=== PATIENT | female | born 1940 | race Caucasian/White ===

== ENCOUNTER → 2017-07-11 | Outpatient (CLI) | payer OTHER, MEDICARE | LOC: BRMIMAGING 11:34 | PROVIDERS: ATTEND Family Medicine | DX: Z13.820 Encounter for screening for osteoporosis (principal); Z78.0 Asymptomatic menopausal state ==

== ENCOUNTER → 2018-02-12 | Outpatient (CLI) | payer OTHER, MEDICARE | LOC: CIMAGING 12:36 | PROVIDERS: ATTEND Family Medicine | DX: R06.02 Shortness of breath (principal); R09.02 Hypoxemia; K44.9 Diaphragmatic hernia without obstruction or gangrene; Z85.048 Personal history of other malignant neoplasm of rectum, rectosigmoid junction, and anus | CPT/HCPCS: 36415-PO; 71046-PO; 80053-PO; 85025-PO ==

== ENCOUNTER → 2018-03-25 | Outpatient (CLI) | payer OTHER, MEDICARE | LOC: BHFA 09:30 | PROVIDERS: ATTEND Internal Medicine Interventional Cardiology | DX: R06.02 Shortness of breath (principal) | CPT/HCPCS: 78452; 93017; A9500; J2785 ==

== ENCOUNTER → 2018-04-07 | Outpatient (CLI) | payer OTHER, MEDICARE | LOC: BHCLAF 09:15 | PROVIDERS: ATTEND Internal Medicine Cardiovascular Disease | DX: R06.02 Shortness of breath (principal) | CPT/HCPCS: 93306-PO ==

== ENCOUNTER 2019-02-10 05:39 | Day surgery (SDC) | payer OTHER, MEDICARE ==
[2019-02-10] MEDS ORDERED: LR 1,000 ML IV ONE (06:06)
[2019-02-10] MEDS ORDERED: LIDOCAINE 1% 2 ML INJ ONE (06:30)
[2019-02-10] MEDS ORDERED: BUPIVACAINE/EPI 0.5% 30 ML SDV ONE (06:50)
--- NOTE | 2019-02-10 07:01 | PDANEPAE ---
ANE Past Medical History - Cardiovascular History Hx Hypertension: Yes Hx Arrhythmias: No Hx Chest Pain: No Hx Coronary Artery / Peripheral Vascular Disease: No Hx CHF / Valvular Disease: No Hx Palpitations: No Cardiovascular History Comment: hyperlipidemia. blood clots s/p foot surgery 1996 and under armpit in 2000. 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 reflux - Other Health History Other Health History: wears glasses. bruises easily d/t warfarin. dry skin - Chronic Pain History Chronic Pain: Yes (left knee) - Surgical History Prior Surgeries: yag laser last week 01/22/19. cataract surgery- bilaterally . 11/1996 left foot surgery with Shonka blood clots s/p this surgery. hysterectomy 1985. appy 1981 ANE Review of Systems Review of Systems: - Exercise capacity METS (RN): 3 METS ANE Patient History - Allergies Allergies/Adverse Reactions: No Known Allergies Allergy (Verified 01/27/19 11:56) - Home Medications Home Medications: TRIAMTERENE/HCTZ 75/50 08/18/09 [Last Taken 02/09/19] Warfarin 08/18/09 [Last Taken 02/05/19] metFORMIN HCL [Metformin ER Osmotic] 09/15/13 [Last Taken 02/08/19] Lisinopril 02/08/14 [Last Taken 02/09/19] Gabapentin 01/27/19 [Last Taken 02/09/19] Herbals/Supplements -Info Only 01/27/19 [Last Taken 02/03/19] Omeprazole 01/27/19 [Last Taken 02/10/19] SIMVASTATIN 01/27/19 [Last Taken 02/09/19] - Smoking Hx Smoking Status: Never smoked - Family Anes Hx Family Hx Anesthesia Complications: none ANE Labs/Vital Signs - Vital Signs Vital Signs: reviewed preoperatively; see RN documention for details Height: 163 cm Weight: 91 kg ANE Physical Exam - Airway Neck exam: decreased ROM Mallampati Score: Class 3 - Pulmonary Pulmonary: clear to auscultation - Cardiovascular Cardiovascular: regular rate and rhythym - ASA Status ASA Status: II ANE Anesthesia Plan Anesthesia Plan: GA w LMA
[2019-02-10] MEDS ORDERED: MIDAZOLAM 2 MG/2 ML VIAL IVP ONE (07:04)
[2019-02-10] MEDS ORDERED: fentaNYL 100 MCG/2 ML INJ ONE ×2 (07:11→08:08)
[2019-02-10] MEDS ORDERED: PROPOFOL 200 MG/20 ML VIAL ONE (07:11)
[2019-02-10] MEDS ORDERED: METOCLOPRAMIDE 10 MG/2 ML VIAL ONE (07:16)
--- NOTE | 2019-02-10 07:16 | PDHPUP ---
History & Physical Update H&P update statement: This history and physical update is based on an assessment of the patient which was completed after admission or registration (within 24 hours), but prior to the surgery/procedure. H&P update: H&P reviewed & patient examined, no change in patient's condition since H&P completed
[2019-02-10] MEDS ORDERED: ceFAZolin 2 GM/DEXTROSE 100 ML IV ONE (07:17)
[2019-02-10 07:21] LABS: INR 1.12 (0.83-1.16)
[2019-02-10] MEDS ORDERED: KETOROLAC 30 MG/1 ML SDV ONE (08:38)
[2019-02-10] MEDS ORDERED: ONDANSETRON 4 MG/2 ML VIAL ONE (08:38)
[2019-02-10] MEDS ORDERED: PROMETHAZINE HCL 25 MG/ML INJ IVP PRN (08:41)
[2019-02-10] MEDS ORDERED: LR 500 ML IV PRN (08:41)
[2019-02-10] MEDS ORDERED: fentaNYL 100 MCG/2 ML INJ IVP PRN (08:41)
[2019-02-10] MEDS ORDERED: HYDROCODONE/APAP 5/325 TAB PO PRN (08:41)
[2019-02-10] MEDS ORDERED: MEPERIDINE 25 MG/0.5 ML AMP IVP PRN (08:41)
[2019-02-10] MEDS ORDERED: ALBUTEROL 3 ML DEYVIAL IH PRN (08:41)
[2019-02-10] MEDS ORDERED: oxyCODONE IR 5 MG TAB PO PRN (08:41)
[2019-02-10] MEDS ORDERED: METOCLOPRAMIDE 10 MG/2 ML VIAL IVP PRN (08:41)
[2019-02-10] MEDS ORDERED: ONDANSETRON 4 MG/2 ML VIAL IVP PRN (08:41)
[2019-02-10] MEDS ORDERED: NALOXONE HCL 0.4 MG/ML INJ IVP PRN (08:41)
[2019-02-10] MEDS ORDERED: ACETAMINOPHEN 500 MG TAB PO PRN (08:41)
[2019-02-10] MEDS ORDERED: HYDROmorphONE/DILAUDID 1 MG/ML INJ IVP PRN (08:41)
[2019-02-10] MEDS ORDERED: ONDANSETRON DISINTEGRATING 4 MG TAB PO PRN (08:50)
[2019-02-10] MEDS ORDERED: diphenhydrAMINE 25 MG CAP PO PRN (08:50)
[2019-02-10] MEDS ORDERED: DIPHENOXYLATE/ATROPINE LOMOTIL 1 TAB PO PRN (08:50)
--- NOTE | 2019-02-10 08:50 | POSTOPPROG ---
Post Op Note Date of Operation: 02/10/19 Surgeon: Luz Shetty Anesthesia: LMA Pre-op Diagnosis: l mmt/lmt/oa Procedure: l knee scope w/ partial med/lat menisectomy with chondroplasty Inf/Abcess present in the surg proc area at time of surgery?: No Depth: Deep Incisional (Fascial) EBL: 50-100
[2019-02-10] MEDS ORDERED: LR 1,000 ML IV SCH (09:00)
--- NOTE | 2019-02-10 10:21 | GOP ---
[f rep st] OPERATIVE REPORT DATE OF OPERATION: 02/10/2019 SURGEON: Luz Shetty MD ANESTHESIA: By LMA. 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 PROCEDURE PERFORMED: Left knee arthroscopy with partial medial, partial lateral meniscectomy with ch ondroplasty of all 3 compartments. FINDINGS: INDICATIONS: This is a 78-year-old female with a several-month history of left knee pain worsening w ith use and with time despite conservative measures. MRI exam reveals tear of the posterior horn of the medial meniscus and some osteoarthritic changes, tearing of the posterior horn and body of the la teral meniscus. She wishes to have surgery in order to resolve the problem. DESCRIPTION OF PROCEDURE: Patient was brought to the operating room after the left side had been sybil ntified as the correct side by the patient, nurse, and the physician. Once in the operating room, e was placed under general anesthesia using an LMA. Once asleep, a tourniquet placed around the uppe r portion of left thigh, and both legs placed in appropriate leg sage. The left lower extremity wa s than sterilely prepped and draped in usual fashion using LEEANNA/solution. Once prepped and draped, e limb was exsanguinated, tourniquet inflated to 250 mmHg. Incision was made the superomedial portion of the knee with an outflow trocar introduced without diff iculty. A second incision was made lateral to the patellar tendon between the inferior pole of the p atella and tibial plateau with the camera introduced without difficulty. Inspection of the joint rev ealed no loose bodies in the suprapatellar pouch and the mediolateral gutter. There were grade III a nd some small areas of grade IV chondral change of the patella with grade II to III chondral changes noted of the trochlea. Further inspection revealed the ACL ligament to be intact. Inspection of med ial compartment revealed a large tear of the posterior horn and root of the medial meniscus, as well as some grade III chondral changes particularly to the femur. Further inspection revealed posterior root and body tear of the lateral meniscus with grade II chondral changes noted particularly of the f emur; therefore, a third incision was made medial to the patellar tendon between the inferior pole of the patella and tibial plateau. Alternatingly using an arthroscopic straight biter and a [facility] was used to debride and debulk tears of the lateral meniscus, as well as remove the loose fragments and cartilage from all 3 compartments. Once completed, all instruments were removed from the knee with 30 cc of Marcaine infused in the knee joint. The 3 portal sites were closed using 3-0 nylon suture in a [id number] type stitch. The wounds were dressed with Xeroform, 4 x 4, wrapped in cast padding. Leg was completely undraped in t operating room, tourniquet removed from the thigh, and Oswaldo wrap placed around the knee. The right leg was taken out of its leg sage, she was placed supine. She was woken up, extubated. She was t ransferred onto a stretcher and sent to recovery room in good condition. TOURNIQUET TIME: 36 minutes. /[id number]/MODL
[2019-02-10 10:39] VITALS: BP 118/61
--- NOTE | 2019-02-10 12:29 | POSTANESTH ---
Post Anesthetic Evaluation Cardiovascular Status: Normal, Stable Respiratory Status: Normal, Stable Level of Consciousness/Mental Status: Can Participate in Eval Pain Control: Adequate, Prn Tx Ordered Nausea/Vomiting Control: Adequate, Prn Tx Ordered Complications Possibly Related to Anesthesia: None Noted
== END 2019-02-10 10:45 | disposition home or self-care (01) ==
LOC: FSGY 05:39
PROVIDERS: ATTEND Orthopaedic Surgery
PROC: 0SBD4ZZ Excision of Left Knee Joint, Percutaneous Endoscopic Approach (ICD-10-PCS; principal; 2019-02-10 07:15)
DX: M23.322 Other meniscus derangements, posterior horn of medial meniscus, left knee (principal); M23.352 Other meniscus derangements, posterior horn of lateral meniscus, left knee; M17.12 Unilateral primary osteoarthritis, left knee; I10 Essential (primary) hypertension; E78.5 Hyperlipidemia, unspecified; K21.9 Gastro-esophageal reflux disease without esophagitis; Z86.718 Personal history of other venous thrombosis and embolism; Z79.01 Long term (current) use of anticoagulants; R73.03 Prediabetes; I73.9 Peripheral vascular disease, unspecified
CPT/HCPCS: J1885; J2250; J2405; J2704; J2765; J3010